=== PATIENT | female | born 1975 ===

== ENCOUNTER 2019-07-27 08:44 | Emergency (ER) | payer BC ==
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
[2019-07-27] MEDS ORDERED: IBUPROFEN 200 MG TAB PO ONE (10:13)
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
[2019-07-27] MEDS ORDERED: TRAMADOL HCL 50 MG TAB ONE (10:20)
[2019-07-27] MEDS ORDERED: CYCLOBENZAPRINE 10 MG TAB ONE (10:20)
[2019-07-27 11:05] VITALS: TEMP 97.7; O2SAT 100
[2019-07-27 11:07] VITALS: BP 112/77
== END 2019-07-27 10:21 | disposition home or self-care (01) ==
LOC: ER 08:44
DX: R07.1 Chest pain on breathing (principal); V43.52XA Car driver injured in collision with other type car in traffic accident, initial encounter; W22.11XA Striking against or struck by driver side automobile airbag, initial encounter; Y93.89 Activity, other specified; Y92.410 Unspecified street and highway as the place of occurrence of the external cause; F41.9 Anxiety disorder, unspecified
CPT/HCPCS: 71045; 72040; 99284